=== PATIENT | female | born 1980 | race Caucasian/White ===

== ENCOUNTER 2017-02-08 17:57 | Emergency (ER) | payer MEDICAID ==
[2017-02-08] MEDS: LORAZEPAM 2 MG/ML VIAL IV ONE (18:13)
--- NOTE | 2017-02-08 18:18 | Emergency Department Record ---
History of Present Illness - General Chief complaint: Allergic Reaction Stated complaint: MIGRAINE/MEDICATION REACTION Time Seen by Provider: 02/08/17 18:03 Source: Patient Mode of Arrival: Ambulatory Limitations: No limitations - History of Present Illness Initial Comments: The patient is here due to having an atypical reaction to taking Sumatriptan a half hour ago. The patient was having a typical migraine COTO and decided to take an IM shot of the Sumatriptan. She has had Imitrex in the past but has not used this generic brand before. Shortly after receiving the dose she developed a flushed feeling, had difficulty breathing and felt SOB, felt that her face was numb and then became very anxious. She did not have any swelling, rash, itching or vomiting. When she presented to the ED she clearly was extremely anxious but did not exhibit any signs of an anaphylactic reaction. MD Complaint: Other Onset/Timin -: Minutes(s) Exposure: Medication Symptoms: Difficulty breathing, Difficulty swallowing Severity: Mild Previous Allergy History: None - Related Data Allergies Allergy/AdvReac Type Severity Reaction Status Date / Time cefaclor [From Ceclor] Allergy Severe PT UNSURE Unverified 07/25/16 10:11 OF REACTION Travel Screening - Travel/Exposure Within Last 30 Days Have you traveled within the last 30 days?: No Review of Systems Constitutional: Denies: Chills, Fever Eyes: Denies: Eye discharge ENT: Denies: Congestion Respiratory: Denies: Cough, Dyspnea Past Medical History - SOCIAL HISTORY Smoking Status: Never smoker Alcohol Use: Occasional Drug Use: None - RESPIRATORY Hx Respiratory Disorders: No - CARDIOVASCULAR Hx Cardio Disorders: Yes Hx Hypertension: Yes - NEURO Hx Neuro Disorders: Yes Hx Seizures: Yes - GI Hx GI Disorders: No - Hx Genitourinary Disorders: No - ENDOCRINE Hx Endocrine Disorders: No - MUSCULOSKELETAL Hx Arthritis: Yes Hx Fibromyalgia: Yes - PSYCH Hx Psych Problems: Yes Comment:: bipolar - HEMATOLOGY/ONCOLOGY Hx Hematology/Oncology Disorders: Yes Hx Cancer: Yes (bowel) Hx Chemotherapy: Yes Hx Radiation Therapy: Yes Family Medical History Any Significant Family History?: No Physical Exam - General General Appearance: Alert, Oriented x3, Mild distress (due to anxiety. The patient is able to speak in full sentences with a normal voice.) - Head Head exam: Atraumatic, Normocephalic, Normal inspection - Eye Eye exam: Normal appearance, PERRL - ENT Throat exam: Normal inspection. negative: Tonsillar erythema, Tonsillomegaly, Tonsillar exudate, R peritonsillar mass, L peritonsillar mass - Neck Neck exam: Normal inspection, Full ROM. negative: Tenderness - Respiratory Respiratory exam: Normal lung sounds bilaterally. negative: Accessory muscle use, Chest wall tenderness, Decreased breath sounds, Respiratory distress, Rhonchi - Cardiovascular Cardiovascular Exam: Regular rate, Normal rhythm, Normal heart sounds - GI/Abdominal GI/Abdominal exam: Soft, Normal bowel sounds. negative: Tenderness - Extremities Extremities exam: Normal inspection, Full ROM, Normal capillary refill. negative: Tenderness - Neurological Neurological exam: Alert, Normal gait. negative: Abnormal gait, Motor sensory deficit - Psychiatric Psychiatric exam: Anxious - Skin Skin exam: negative: Rash Course Vital Signs 02/08/17 18:01 Temperature 97.5 F L Pulse Rate 111 H Respiratory 20 Rate Blood Pressure 159/117 Pulse Ox 97 - Reevaluation(s) Reevaluation #1: The patient is doing very well at this time. She is MUCH more calm and her HR now is 90 and BP much improved. We will order her some medicine for a migraine COTO. 02/08/17 18:28 Reevaluation #2: The patient is doing better at this time. She is resting comfortably but still does have the Migraine COTO. She will be getting her pain medicines shortly. The patient's care will be turned over to Dr. Celaya at 19:00 due to shift change. 02/08/17 18:47 Medical Decision Making - Data Complexity MDM Data: EKG Ordered and/or Reviewed - Lab Data Result diagrams: 02/08/17 18:11 02/08/17 18:11 - EKG Data -: EKG Interpreted by Me EKG: No Acute Changes, Normal EKG Disposition Forms: Patient Portal Access Quality - Quality Measures Quality Measures: N/A - Blood Pressure Screening View Details: Yes Does Patient Have Any of the Following: No Blood Pressure Classification: Hypertensive Reading Systolic Measurement: 159 Diastolic Measurement: 117 Screening for High Blood Pressure: < Pre-Hypertensive BP, F/U Documented > [ G8950] Pre-Hypertensive Follow-up Interventions: Referral to alternative/primary care provider.
[2017-02-08 18:36] LABS: HEMATOCRIT 43.7 % (35.0-47.0); HEMOGLOBIN 15.7 gm/dl (11.6-16.0); MEAN CELL VOLUME 94.8 fl (81-97); MEAN CORPUSCULAR HEMOGLOBIN 34.1 pg (27-33); MEAN CORPUSCULAR HGB CONC 35.9 g/dl (32-36); MEAN PLATELET VOLUME 9.8 fl (7.4-10.4); PLATELET COUNT 304 K/uL (130-400); RED BLOOD COUNT 4.61 M/uL (3.80-5.40); RED CELL DISTRIBUTION WIDTH 11.4 % (11.5-14.5); WHITE BLOOD COUNT W/O DIFF 3.8 K/uL (4.2-12.2)
[2017-02-08 18:53] LABS: ALB/GLOB RATIO 1.6 (1.1-1.8); ALBUMIN 5.1 g/dL (4.0-5.0); ALKALINE PHOSPHATASE 85 U/L (35-104); ALT/SGPT 142 U/L (<33); AST/SGOT 273 U/L (10.0-35.0); BLOOD UREA NITROGEN 12 mg/dL (6-20); CREATININE 0.5 mg/dL (0.5-0.9); EST GLOMERULAR FILTRATION RATE > 60 mL/min; GLUCOSE,RANDOM 70 mg/dL (74-109); TOTAL PROTEIN 8.3 g/dL (6.6-8.7)
[2017-02-08] MEDS: 0.9 % SODIUM CHLORIDE 1,000 ML BAG IV ONE (18:54)
[2017-02-08] MEDS: METOCLOPRAMIDE HCL 10 MG/2 ML VIAL IVP ONE (18:55)
[2017-02-08] MEDS: KETOROLAC 30 MG/ML VIAL IVP ONE (18:55)
[2017-02-08] MEDS: DIPHENHYDRAMINE HCL IV 50 MG/ML VIAL IVP ONE (18:55)
--- NOTE | 2017-02-08 19:37 | Emergency Department Record ---
History of Present Illness - General Chief complaint: Allergic Reaction Stated complaint: MIGRAINE/MEDICATION REACTION Time Seen by Provider: 02/08/17 18:03 Source: Patient Mode of Arrival: Ambulatory Limitations: No limitations - History of Present Illness Onset/Timin -: Minutes(s) Exposure: Medication Symptoms: Difficulty breathing, Difficulty swallowing Severity: Mild Previous Allergy History: None - Related Data Allergies Allergy/AdvReac Type Severity Reaction Status Date / Time cefaclor [From [facility]] Allergy Severe PT UNSURE Unverified 07/25/16 10:11 OF REACTION Travel Screening - Travel/Exposure Within Last 30 Days Have you traveled within the last 30 days?: No Review of Systems Constitutional: Denies: Chills, Fever Eyes: Denies: Eye discharge ENT: Denies: Congestion Respiratory: Denies: Cough, Dyspnea Past Medical History - SOCIAL HISTORY Smoking Status: Never smoker Alcohol Use: Occasional Drug Use: None - RESPIRATORY Hx Respiratory Disorders: No - CARDIOVASCULAR Hx Cardio Disorders: Yes Hx Hypertension: Yes - NEURO Hx Neuro Disorders: Yes Hx Seizures: Yes - GI Hx GI Disorders: No - Hx Genitourinary Disorders: No - ENDOCRINE Hx Endocrine Disorders: No - MUSCULOSKELETAL Hx Arthritis: Yes Hx Fibromyalgia: Yes - PSYCH Hx Psych Problems: Yes Comment:: bipolar - HEMATOLOGY/ONCOLOGY Hx Hematology/Oncology Disorders: Yes Hx Cancer: Yes (bowel) Hx Chemotherapy: Yes Hx Radiation Therapy: Yes Family Medical History Any Significant Family History?: No Physical Exam - General Limitations: No limitations Course Vital Signs 02/08/17 02/08/17 18:01 18:28 Temperature 97.5 F L Pulse Rate 111 H Pulse Rate [ 92 H Pulse Ox Probe] Respiratory 20 18 Rate Blood Pressure 159/117 Blood Pressure 151/105 [Left Arm] Pulse Ox 97 96 - Reevaluation(s) Reevaluation #1: 02/08/17 19:34 pt feels better Medical Decision Making - Lab Data Result diagrams: 02/08/17 18:11 02/08/17 18:11 Lab Results 02/08/17 02/08/17 Range/Units 18:11 18:11 WBC 3.8 L (4.2-12.2) K/uL RBC 4.61 (3.80-5.40) M/uL Hgb 15.7 (11.6-16.0) gm/dl Hct 43.7 (35.0-47.0) % MCV 94.8 (81-97) fl MCH 34.1 H (27-33) pg MCHC 35.9 (32-36) g/dl RDW 11.4 L (11.5-14.5) % Plt Count 304 (130-400) K/uL MPV 9.8 (7.4-10.4) fl Neutrophils % 22.0 L (47-80) % Band Neutrophils % 2.0 (0-5) % Eosinophils % Not Reportable Basophils % Not Reportable Lymphocytes 63.0 H (16-45) % Monocytes 13.0 H (0-9) % Basophils 0.0 (0-6) % Eosinophil Count 0.0 (0-6) % Sodium 142 (136-145) mmol/L Potassium 3.6 (3.4-4.5) mmol/L Chloride 97 L (98-107) mmol/L Carbon Dioxide 23.0 (22-29) mmol/L Anion Gap 22.0 H (7-16) BUN 12 (6-20) mg/dL Creatinine 0.5 (0.5-0.9) mg/dL Estimated GFR > 60 mL/min Random Glucose 70 L (74-109) mg/dL Calcium 9.6 (8.6-10.0) mg/dL Total Bilirubin Not Reportable AST 273 H (10.0-35.0) U/L ALT 142 H (<33) U/L Alkaline Phosphatase 85 (35-104) U/L Total Protein 8.3 (6.6-8.7) g/dL Albumin 5.1 H (4.0-5.0) g/dL Globulin 3.2 (1.4-4.8) gm/dL Albumin/Globulin Ratio 1.6 (1.1-1.8) Disposition Disposition: Discharge Clinical Impression: Anxiety Migraine Qualifiers: Migraine type: unspecified Status migrainosus presence: without status migrainosus Intractability: not intractable Qualified Code(s): G43.909 - Migraine, unspecified, not intractable, without status migrainosus Disposition: Home, Self-Care Condition: (1) Good Instructions: Migraine Headache (ED) Additional Instructions: follow up with family doctor. return sooner if worse Forms: Patient Portal Access Quality - Quality Measures Quality Measures: N/A - Blood Pressure Screening Does Patient Have Any of the Following: No Blood Pressure Classification: Hypertensive Reading Systolic Measurement: 159 Diastolic Measurement: 117 Screening for High Blood Pressure: < First Hypertensive BP, F/U Documented > [ G8950] First Hypertensive Follow-up Interventions: Follow-up with rescreen GT 1 day and LT 4 weeks.
== END 2017-02-08 19:58 | disposition home or self-care (01) ==
LOC: ER 17:57
DX: G43.909 Migraine, unspecified, not intractable, without status migrainosus (principal); F41.9 Anxiety disorder, unspecified; R06.02 Shortness of breath; R13.10 Dysphagia, unspecified
CPT/HCPCS: 99284 ×2; 96374; 96375; 80053; 85027; 93005; 93010; J1885; J2060; J1200; J2765; J7030

== ENCOUNTER 2017-12-21 11:32 | Day surgery (SDC) | payer MEDICAID ==
[2017-12-21] MEDS ORDERED: PROPOFOL 10 MG/ML VIAL IV ONE (11:33)
[2017-12-21] MEDS ORDERED: MIDAZOLAM HCL 2MG/2ML VIAL IV ONE (11:33)
[2017-12-21] MEDS ORDERED: LIDOCAINE 2% MDV (20MG/ML) 20ML VIAL IV ONE (11:33)
--- NOTE | 2017-12-24 12:50 | Operative Note ---
DATE OF SURGERY: 12/21/2017 SURGEON: Ameya Spencer MD OPERATION: COLONOSCOPY. INDICATIONS: This is a 37-year-old female with history of colon polyps who presented for surveillance colonoscopy. POSTOPERATIVE DIAGNOSIS: Normal colon and terminal ileal mucosa. ANESTHESIA: Sedation is per Anesthesia. Pulse oximetry was monitored throughout the procedure to maintain O2 saturation of 90% or greater. Supplemental oxygen was administered via nasal cannula. Cardiac and vital signs were monitored throughout the duration of the procedure, and they were stable. The procedure of colonoscopy and risks and alternatives of the procedure, including the risk of bleeding and perforation, among others, were explained to the patient who voiced understanding and agreed to have the procedure done. Physical examination was performed, and the patient was found stable for sedation. PROCEDURE: The patient was placed in the left lateral position. Sedation was initiated. A digital rectal exam was performed and showed some mild external hemorrhoids with no palpable rectal masses. An Olympus PCF-180AL colonoscope was then inserted into the rectum under direct visualization. It was advanced to the cecum without difficulty. The ileocecal valve and appendiceal orifice were identified and photographed. The colonic mucosa was carefully examined upon introduction of the colonoscope. There were no lesions noted. The colonoscope was then withdrawn while carefully examining the colonic mucosal surfaces. No lesions were noted. In the rectum, retroflexion was performed and grade 1 internal hemorrhoids were noted. The colonoscope was then withdrawn and the procedure was terminated. The patient tolerated the procedure well without any immediate complications. The patient remained with stable vital signs and was transferred to the recovery room. RECOMMENDATIONS: 1. The patient should be on a high-fiber diet. 2. The patient is to have a repeat colonoscopy for surveillance in about 5 years. Thank you for allowing me to participate in the care of your patient. CC: Destinee JACKSON
== END 2017-12-21 13:40 | disposition home or self-care (01) ==
LOC: HOP 11:32
PROVIDERS: ATTEND Internal Medicine Gastroenterology
DX: Z12.11 Encounter for screening for malignant neoplasm of colon (principal); Z86.010 Personal history of colon polyps; I10 Essential (primary) hypertension; L40.50 Arthropathic psoriasis, unspecified; F43.10 Post-traumatic stress disorder, unspecified
CPT/HCPCS: 00812; 81025; G0121

== ENCOUNTER 2018-07-04 11:21 | Emergency (ER) | payer MEDICAID ==
[2018-07-04] MEDS ORDERED: ONDANSETRON HCL IV 4 MG/2 ML VIAL IV ONE (11:42)
[2018-07-04] MEDS ORDERED: 0.9 % SODIUM CHLORIDE 1,000 ML BAG IV ONE (11:42)
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
[2018-07-04 12:12] LABS: HEMATOCRIT 40.3 % (35.0-47.0); HEMOGLOBIN 14.2 gm/dl (11.6-16.0); MEAN CELL VOLUME 105.8 fl (81-97); MEAN CORPUSCULAR HEMOGLOBIN 37.3 pg (27-33); MEAN CORPUSCULAR HGB CONC 35.2 g/dl (32-36); MEAN PLATELET VOLUME 10.5 fl (7.4-10.4); PLATELET COUNT 223 K/uL (130-400); RED BLOOD COUNT 3.81 M/uL (3.80-5.40); RED CELL DISTRIBUTION WIDTH 12.8 % (11.5-14.5); WHITE BLOOD COUNT W/O DIFF 2.5 K/uL (4.2-12.2)
[2018-07-04 12:26] LABS: BLOOD UREA NITROGEN 6 mg/dL (6-20); CREATININE 0.6 mg/dL (0.5-0.9); EST GLOMERULAR FILTRATION RATE > 60 mL/min; PLATELET ESTIMATE NORMAL (NORMAL); TOTAL PROTEIN 7.4 g/dL (6.6-8.7)
[2018-07-04 12:28] LABS: GLUCOSE,RANDOM 89 mg/dL (74-109)
[2018-07-04 12:31] LABS: ALB/GLOB RATIO 1.3 (1.1-1.8); ALBUMIN 4.2 g/dL (4.0-5.0); ALKALINE PHOSPHATASE 112 U/L (35-104); ALT/SGPT 53 U/L (<33); AST/SGOT 162 U/L (10.0-35.0)
[2018-07-04] MEDS ORDERED: ACETAMINOPHEN 325 MG TAB PO ONE (12:40)
[2018-07-04 13:10] LABS: URINE APPEARANCE CLEAR; URINE BILIRUBIN NEGATIVE (NEGATIVE); URINE BLOOD NEGATIVE (NEGATIVE); URINE COLOR YELLOW; URINE GLUCOSE (UA) NEGATIVE (NEGATIVE); URINE KETONE NEGATIVE (NEGATIVE); URINE LEUKOCYTE ESTERASE NEGATIVE (NEGATIVE); URINE NITRITE NEGATIVE (NEGATIVE)
[2018-07-04 13:11] LABS: HCG,QUALITATIVE URINE NEGATIVE (NEGATIVE)
[2018-07-04] MEDS ORDERED: POTASSIUM CHLORIDE 20 MEQ TABLET PO ONE (13:23)
--- NOTE | 2018-07-06 16:14 | RADIOLOGY REPORT ---
DATE: 07/04/2018 at 1210 hours. EXAM: CHEST, TWO VIEWS. HISTORY: Cough, congestion, and nausea for one month. TECHNIQUE: Upright PA and lateral views of the chest. COMPARISON: Radiographic examination of the thoracic spine dated 09/24/2013. FINDINGS: The heart is normal in size, and the pulmonary vasculature is nondilated. Minimal biapical pleural and parenchymal scarring is questioned. The lungs and pleural spaces are otherwise clear. The osseous structures are intact. IMPRESSION: NO EVIDENCE OF ACUTE CARDIOPULMONARY DISEASE. JOB NUMBER: [id number] [facility]
== END 2018-07-04 13:44 | disposition home or self-care (01) ==
LOC: ER 11:21
DX: J20.9 Acute bronchitis, unspecified (principal); E87.6 Hypokalemia; R94.5 Abnormal results of liver function studies; I10 Essential (primary) hypertension
CPT/HCPCS: 99284 ×2; 96374; 80053; 81003; 81025; 85027; 71046; J2405; J7030

== ENCOUNTER 2018-07-10 10:48 | Emergency (ER) | payer MEDICAID ==
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
[2018-07-10] MEDS ORDERED: PROMETHAZINE HCL 25 MG in 0.9 % SODIUM CHLORIDE 100ML 100 ML IVPB ONE (11:19)
[2018-07-10] MEDS ORDERED: 0.9 % SODIUM CHLORIDE 1,000 ML BAG IV ONE (11:22)
[2018-07-10 11:54] LABS: BASO % 0.2 % (0-6); EOS % 0.5 % (0-6); GRAN % 63.8 % (47-80); HEMATOCRIT 41.3 % (35.0-47.0); LYMPH % 27.3 % (16-45); MEAN CELL VOLUME 103.8 fl (81-97); MEAN CORPUSCULAR HEMOGLOBIN 37.7 pg (27-33); MEAN CORPUSCULAR HGB CONC 36.3 g/dl (32-36); MEAN PLATELET VOLUME 10.9 fl (7.4-10.4); MONO % 8.2 % (0-9); PLATELET COUNT 277 K/uL (130-400); RED BLOOD COUNT 3.98 M/uL (3.80-5.40); RED CELL DISTRIBUTION WIDTH 12.2 % (11.5-14.5); WHITE BLOOD COUNT W/O DIFF 4.2 K/uL (4.2-12.2)
[2018-07-10 11:58] LABS: URINE APPEARANCE SL CLOUDY; URINE BILIRUBIN SMALL (NEGATIVE); URINE BLOOD MODERATE (NEGATIVE); URINE COLOR YELLOW; URINE GLUCOSE (UA) NEGATIVE (NEGATIVE); URINE KETONE TRACE (NEGATIVE); URINE LEUKOCYTE ESTERASE LARGE (NEGATIVE); URINE NITRITE NEGATIVE (NEGATIVE); URINE UROBILINOGEN 0.2 E.U./dL (0.20 - 1.00)
[2018-07-10 12:06] LABS: URINE BACTERIA 2+
[2018-07-10 12:08] LABS: BLOOD UREA NITROGEN 5 mg/dL (6-20); CREATININE 0.6 mg/dL (0.5-0.9); EST GLOMERULAR FILTRATION RATE > 60 mL/min
[2018-07-10 12:09] LABS: LIPASE 37 U/L (13-60); TOTAL PROTEIN 8.2 g/dL (6.6-8.7)
[2018-07-10 12:11] LABS: GLUCOSE,RANDOM 112 mg/dL (74-109)
[2018-07-10 12:13] LABS: ALBUMIN 4.7 g/dL (4.0-5.0); ALKALINE PHOSPHATASE 143 U/L (35-104); ALT/SGPT 84 U/L (<33); AST/SGOT 374 U/L (10.0-35.0); BILIRUBIN,DIRECT 0.5 mg/dL (0-0.3)
[2018-07-10] MEDS ORDERED: 0.9 % SODIUM CHLORIDE 1000ML 1,000 ML IV SCH (12:30)
[2018-07-10] MEDS ORDERED: POTASSIUM CHLORIDE 20 MEQ TABLET PO ONE ×2 (12:53→14:27)
[2018-07-10] MEDS ORDERED: ONDANSETRON HCL IV 4 MG/2 ML VIAL IVP ONE (13:15)
== END 2018-07-10 14:47 | disposition home or self-care (01) ==
LOC: ER 10:48
DX: R11.2 Nausea with vomiting, unspecified (principal); R19.7 Diarrhea, unspecified; R51 Headache; E87.6 Hypokalemia; F41.9 Anxiety disorder, unspecified; I10 Essential (primary) hypertension
CPT/HCPCS: 80048; 80076; 80320; 81001; 83690; 85025; 96361; 96365; 96375; 99284; J2405; J2550; J7030

== ENCOUNTER 2018-09-10 08:26 | Emergency (ER) | payer MEDICAID ==
[2018-09-10] MEDS ORDERED: ONDANSETRON HCL IV 4 MG/2 ML VIAL IV ONE (08:53)
[2018-09-10] MEDS ORDERED: 0.9 % SODIUM CHLORIDE 1,000 ML BAG IV ONE (08:53)
[2018-09-10 09:07] LABS: HEMATOCRIT 36.5 % (35.0-47.0); HEMOGLOBIN 12.3 gm/dl (11.6-16.0); MEAN CELL VOLUME 107.4 fl (81-97); MEAN CORPUSCULAR HGB CONC 33.7 g/dl (32-36); MEAN PLATELET VOLUME 11.4 fl (7.4-10.4); PLATELET COUNT 180 K/uL (130-400); RED CELL DISTRIBUTION WIDTH 15.3 % (11.5-14.5); WHITE BLOOD COUNT W/O DIFF 8.3 K/uL (4.2-12.2)
[2018-09-10 09:09] LABS: MEAN CORPUSCULAR HEMOGLOBIN 36.1 pg (27-33)
[2018-09-10 09:10] LABS: HCG,QUALITATIVE URINE NEGATIVE (NEGATIVE)
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
[2018-09-10 09:18] LABS: BLOOD UREA NITROGEN 3 mg/dL (6-20); CREATININE 0.5 mg/dL (0.5-0.9); EST GLOMERULAR FILTRATION RATE > 60 mL/min; LIPASE 31 U/L (13-60); TOTAL PROTEIN 7.1 g/dL (6.6-8.7); URINE BILIRUBIN LARGE (NEGATIVE); URINE BLOOD TRACE-I (NEGATIVE); URINE GLUCOSE (UA) NEGATIVE (NEGATIVE); URINE KETONE 15 mg/dL (NEGATIVE); URINE LEUKOCYTE ESTERASE TRACE (NEGATIVE); URINE NITRITE POSITIVE (NEGATIVE)
[2018-09-10 09:19] LABS: URINE APPEARANCE CLOUDY
[2018-09-10 09:20] LABS: GLUCOSE,RANDOM 113 mg/dL (74-109)
[2018-09-10 09:22] LABS: URINE RBC 0 - 2 (NONE SEEN); URINE WBC 0 - 2 (0-2/hpf)
[2018-09-10 09:23] LABS: ALB/GLOB RATIO 0.7 (1.1-1.8); ALBUMIN 2.9 g/dL (4.0-5.0); ALKALINE PHOSPHATASE 319 U/L (35-104); ALT/SGPT 49 U/L (<33); AST/SGOT 282 U/L (10.0-35.0); URINE BACTERIA 2+; URINE MUCUS MODERATE
[2018-09-10 09:24] LABS: URINE COLOR ORANGE
[2018-09-10] MEDS ORDERED: POTASSIUM CHLORIDE 20 MEQ TABLET PO ONE (09:33)
[2018-09-10 13:26] LABS: INR 1.7; PROTHROMBIN TIME (PATIENT) 16.7 SECONDS (9.5-12.1)
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
[2018-09-10 18:54] LABS: HEP A AB IGM Nonreactive (Nonreactive); HEPATITIS B CORE ANTIBODY,IGM Nonreactive (Nonreactive); HEPATITIS B SURFACE ANTIGEN Nonreactive (Nonreactive); HEPATITIS C VIRUS ANTIBODY Nonreactive (Nonreactive)
--- NOTE | 2018-09-12 14:53 | CT SCAN REPORT ---
EXAM: CT OF THE ABDOMEN AND PELVIS WITHOUT CONTRAST HISTORY: ABDOMINAL PAIN, VOMITING. ELEVATED LIVER ENZYMES. TECHNIQUE: CT of the abdomen and pelvis without contrast was obtained. Comparison: None. FINDINGS: A noncalcified 3 mm nodular is partially visualized in the right lower lobe. The lung bases are otherwise clear. The liver is diffusely enlarged, measuring up to 25.7 cm in length. Diffuse, slightly heterogeneous hypoattenuation of the hepatic parenchyma. The gallbladder monroe appear diffusely thickened. No visible gallstones. The biliary tree is not well seen. The spleen is top normal in size. Unremarkable noncontrast appearance of the pancreas and adrenal glands. No intrarenal calculi. No hydronephrosis. Small volume of ascites, predominantly layering within the pelvis. No pneumoperitoneum. Mild sigmoid colon diverticulosis without evidence of acute diverticulitis. The appendix is not clearly seen, possibly obscured by multiple small bowel loops in the right lower quadrant. No disproportionate inflammatory changes are appreciated in the right lower abdominal quadrant. The stomach and small bowel are nondilated. Intrauterine device within the uterus. The urinary bladder is nondistended, poorly visualized. The abdominal aorta appears nondilated. No acute osseous findings. IMPRESSION: 1. HEPATOMEGALY WITH DIFFUSE PARENCHYMAL HYPOATTENUATION, WHICH MAY REPRESENT STEATOSIS AND/OR HEPATITIS. 2. DIFFUSE GALLBLADDER WALL THICKENING WITHOUT VISIBLE GALLSTONES. APPEARANCE IS NONSPECIFIC AND COULD BE SEEN IN THE SETTING OF ADJACENT HEPATIC INFLAMMATION. FOLLOW-UP WITH ULTRASOUND MAY HELP TO FURTHER CHARACTERIZE. 3. SMALL VOLUME OF ASCITES. 4. SMALL NONCALCIFIED 3 MM RIGHT LOWER LOBE SUBPLEURAL NODULES NOTED. JOB NUMBER: [id number] [facility]
--- NOTE | 2018-09-12 14:55 | RADIOLOGY REPORT ---
EXAM: CHEST, TWO VIEWS HISTORY: CONGESTION. TECHNIQUE: Two views of the chest were obtained. Comparison: Chest radiograph 07/04/18. FINDINGS: The cardiac silhouette is within normal size limits. No focal pulmonary consolidation. No pleural effusion or pneumothorax. IMPRESSION: NO ACUTE LUNG FINDINGS. JOB NUMBER: [id number] [facility]
--- NOTE | 2018-09-12 15:02 | ULTRASOUND REPORT ---
EXAM: COMPLETE ABDOMEN ULTRASOUND HISTORY: ABDOMINAL PAIN AND BLOATING. TECHNIQUE: Complete abdomen ultrasound was obtained. Comparison: CT of the abdomen and pelvis 09/10/18. FINDINGS: The visualized portion of the pancreatic head appears unremarkable. The remainder of the pancreas is obscured by shadowing bowel gas. The visualized abdominal aorta appears nondilated. The liver appears enlarged and diffusely echogenic. Perihepatic ascites is noted. The gallbladder wall appears circumferentially thickened measuring up to 7 mm. No gallstones are seen. The common bile duct measures up to 5 mm in transverse diameter, within normal limits. The spleen is likely top normal in size, difficult to differentiate sonographically from adjacent liver as seen on same day CT. The right renal length is 12.2 cm. The left renal length is 12.2 cm. No hydronephrosis. No shadowing calculus or focal mass demonstrated. The inferior vena cava is not well seen. IMPRESSION: 1. DIFFUSE GALLBLADDER WALL THICKENING WITHOUT EVIDENCE OF CHOLELITHIASIS. THE APPEARANCE IS NONSPECIFIC, WITH DIFFERENTIAL CONSIDERATIONS INCLUDING FLUID OVERLOAD STATE, ADJACENT HEPATOCELLULAR DISEASE, OR HYPOPROTEINEMIA. 2. THE COMMON BILE DUCT APPEARS NONDILATED. 3. ENLARGED ECHOGENIC LIVER, SUGGESTING STEATOSIS. 4. SMALL VOLUME OF PERIHEPATIC ASCITES. JOB NUMBER: [id number] [facility]
== END 2018-09-10 14:17 | disposition short-term general hospital (02) ==
LOC: ER 08:26
DX: K70.11 Alcoholic hepatitis with ascites (principal); R10.84 Generalized abdominal pain; R11.2 Nausea with vomiting, unspecified; I10 Essential (primary) hypertension
CPT/HCPCS: 71046; 74176; 76700; 80053; 81001; 81025; 82248; 83605; 83690; 85027; 85610; 96374; 99285; J2405; J7030

== ENCOUNTER 2018-09-20 11:55 | Emergency (ER) | payer MEDICAID ==
[2018-09-20] MEDS ORDERED: 0.9 % SODIUM CHLORIDE 1,000 ML BAG IV ONE (12:00)
[2018-09-20] MEDS ORDERED: MORPHINE SULFATE 10 MG/ML VIAL IVP ONE ×3 (12:07→14:49)
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
[2018-09-20 12:20] LABS: ABSOLUTE NEUTROPHIL COUNT 10.36; BASO % 0.2 % (0-6); EOS % 0.5 % (0-6); GRAN % 78.2 % (47-80); HEMATOCRIT 36.3 % (35.0-47.0); HEMOGLOBIN 12.4 gm/dl (11.6-16.0); LYMPH % 11.4 % (16-45); MEAN CELL VOLUME 108.7 fl (81-97); MEAN CORPUSCULAR HEMOGLOBIN 37.1 pg (27-33); MEAN CORPUSCULAR HGB CONC 34.2 g/dl (32-36); MEAN PLATELET VOLUME 11.1 fl (7.4-10.4); MONO % 9.7 % (0-9); PLATELET COUNT 282 K/uL (130-400); RED BLOOD COUNT 3.34 M/uL (3.80-5.40); RED CELL DISTRIBUTION WIDTH 17.8 % (11.5-14.5); WHITE BLOOD COUNT W/O DIFF 13.2 K/uL (4.2-12.2)
[2018-09-20 12:27] LABS: BLOOD UREA NITROGEN 8 mg/dL (6-20); CREATININE 0.5 mg/dL (0.5-0.9); EST GLOMERULAR FILTRATION RATE > 60 mL/min; TOTAL PROTEIN 6.7 g/dL (6.6-8.7)
[2018-09-20 12:28] LABS: LIPASE 30 U/L (13-60)
[2018-09-20 12:29] LABS: GLUCOSE,RANDOM 115 mg/dL (74-109); INR 1.7; PROTHROMBIN TIME (PATIENT) 16.6 SECONDS (9.5-12.1)
[2018-09-20 12:32] LABS: ALB/GLOB RATIO 0.6 (1.1-1.8); ALBUMIN 2.4 g/dL (4.0-5.0); ALKALINE PHOSPHATASE 250 U/L (35-104); ALT/SGPT 52 U/L (<33); AST/SGOT 221 U/L (10.0-35.0)
[2018-09-20] MEDS ORDERED: 0.9 % SODIUM CHLORIDE 1000ML 1,000 ML IV ONE (12:59)
--- NOTE | 2018-09-23 19:24 | ULTRASOUND REPORT ---
EXAM: ULTRASOUND ABDOMEN, LIMITED HISTORY: LOWER ABDOMINAL PAIN. SWELLING. ASCITES. TECHNIQUE: Routine ultrasound examination of the right upper abdomen is performed. COMPARISON: Ultrasound of the abdomen complete dated 09/10/2018. CT abdomen and pelvis without contrast dated 09/10/2018. FINDINGS: The pancreatic tail is obscured by overlying bowel gas. The remainder of the pancreas is visualized and normal in appearance. The liver is again noted to be diffusely echogenic and coarsened in echotexture consistent with diffuse hepatic steatosis. No definite hepatic mass. The margins of the right liver lobe appear somewhat micronodular. This may relate to artifact though this appearance can also be seen with cirrhosis. No intrahepatic biliary ductal dilatation is seen. The common hepatic duct is mildly prominent measuring 7.8 mm. Correlation with serum bilirubin and alkaline phosphatase levels is recommended. On the prior examination, it measured 5 mm. No cholelithiasis. Moderate distention of the gallbladder again demonstrated with uniform gallbladder wall thickening. A negative sonographic Mann sign is reported. There is ascites noted about the liver appearing more pronounced than on the prior examination. Screening evaluation of the right kidney does not demonstrate hydronephrosis nor mass. It measures 10.8 cm in length. IMPRESSION: 1. THE LIVER REMAINS ENLARGED AND DIFFUSELY ECHOGENIC WITH COARSENED HEPATIC ECHOTEXTURE CONSISTENT WITH STEATOSIS. THIS CAN ALSO BE SEEN WITH HEPATITIS AND CIRRHOSIS. THE MARGINS OF THE INFERIOR RIGHT LIVER LOBE APPEAR SOMEWHAT MICRONODULAR ON A COUPLE OF IMAGES. THIS MAY JUST RELATE TO ARTIFACT. CIRRHOSIS IS LESS LIKELY. 2. MILDLY PROMINENT COMMON HEPATIC DUCT MEASURING 7.8 MM WITHOUT INTRAHEPATIC BILIARY DUCTAL DILATATION. CORRELATION WITH SERUM BILIRUBIN AND ALKALINE PHOSPHATASE LEVELS RECOMMENDED. 3. MODERATE DISTENTION OF THE GALLBLADDER REDEMONSTRATED ASSOCIATED WITH UNIFORM GALLBLADDER WALL THICKENING. WHILE THIS THICKENING MAY RELATE TO A HYPOPROTEINEMIC STATE AND THE PRESENCE OF ASCITES, CHRONIC CHOLECYSTITIS CANNOT BE EXCLUDED. 4. ASCITES IN THE RIGHT UPPER QUADRANT APPEARING SLIGHTLY MORE PRONOUNCED THAN ON THE 09/10/2018 EXAMINATION. [facility]: [id number] [facility]
== END 2018-09-20 15:49 | disposition short-term general hospital (02) ==
LOC: ER 11:55
DX: R18.8 Other ascites (principal); K76.0 Fatty (change of) liver, not elsewhere classified; R10.84 Generalized abdominal pain; I10 Essential (primary) hypertension
CPT/HCPCS: 99285 ×2; 96376; 96374; 83735; 83690; 85025; 85730; 85610; 80053; 84703; 76705; G0480; J2270; 80320; J7030

== ENCOUNTER 2018-09-29 08:27 | Emergency (ER) | payer MEDICAID ==
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
[2018-09-29 10:47] LABS: ABSOLUTE NEUTROPHIL COUNT 11.99; HEMATOCRIT 35.3 % (35.0-47.0); HEMOGLOBIN 11.6 gm/dl (11.6-16.0); MEAN CELL VOLUME 113.5 fl (81-97); MEAN CORPUSCULAR HGB CONC 32.9 g/dl (32-36); MEAN PLATELET VOLUME 11.9 fl (7.4-10.4); PLATELET COUNT 186 K/uL (130-400); RED BLOOD COUNT 3.11 M/uL (3.80-5.40); RED CELL DISTRIBUTION WIDTH 16.5 % (11.5-14.5); WHITE BLOOD COUNT W/O DIFF 14.9 K/uL (4.2-12.2)
[2018-09-29 10:49] LABS: MEAN CORPUSCULAR HEMOGLOBIN 37.2 pg (27-33)
[2018-09-29 10:54] LABS: ANISOCYTOSIS 1+; PLATELET ESTIMATE NORMAL (NORMAL)
[2018-09-29 10:59] LABS: INR 1.6; PARTIAL THROMBOPLASTIN TIME 37.8 SECONDS (24.5-39.1); PROTHROMBIN TIME (PATIENT) 16.1 SECONDS (9.5-12.1)
[2018-09-29 11:01] LABS: BLOOD UREA NITROGEN 9 mg/dL (6-20); CREATININE 0.4 mg/dL (0.5-0.9); EST GLOMERULAR FILTRATION RATE > 60 mL/min
[2018-09-29 11:02] LABS: LIPASE 23 U/L (13-60); TOTAL PROTEIN 5.7 g/dL (6.6-8.7)
[2018-09-29 11:04] LABS: GLUCOSE,RANDOM 117 mg/dL (74-109)
[2018-09-29 11:06] LABS: ALB/GLOB RATIO 0.5 (1.1-1.8); ALBUMIN 1.9 g/dL (4.0-5.0); ALT/SGPT 54 U/L (<33); AST/SGOT 260 U/L (10.0-35.0)
[2018-09-29 11:07] LABS: ALKALINE PHOSPHATASE 196 U/L (35-104)
[2018-09-29 14:20] LABS: URINE APPEARANCE CLOUDY; URINE BILIRUBIN LARGE (NEGATIVE); URINE BLOOD NEGATIVE (NEGATIVE); URINE COLOR BROWN; URINE KETONE TRACE (NEGATIVE); URINE LEUKOCYTE ESTERASE NEGATIVE (NEGATIVE); URINE NITRITE NEGATIVE (NEGATIVE); URINE PROTEIN TRACE (NEGATIVE)
[2018-09-29 14:25] LABS: URINE RBC NONE SEEN (NONE SEEN); URINE WBC NONE SEEN (0-2/hpf)
[2018-09-29 14:26] LABS: URINE AMORPHOUS SEDIMENT 2+; URINE HYALINE CAST FEW /lpf; URINE MUCUS HEAVY
--- NOTE | 2018-10-02 06:13 | CT SCAN REPORT ---
EXAM: CT SCAN ABDOMEN/PELVIS WO CONTRAST HISTORY: ABDOMINAL PAIN, HISTORY OF CHRONIC LIVER DISEASE. TECHNIQUE: Axial CT scan of the abdomen and pelvis obtained without oral or IV contrast at the referring physician's request. COMPARISON: CT abdomen and pelvis, 09/10/18. FINDINGS: No calcified gallstones are identified within the gallbladder. No intrarenal calculi identified on either side. No hydronephrosis or hydroureter is seen. As such, the ureters are extremely difficult to follow in their course throughout the retroperitoneum and pelvis in their nondilated state, particularly in this patient of thin body habitus with little adipose tissue to act as a natural contrast agent and with considerable ascites as well. Given these limitations, no definite ureteral calculus seen on either side and no bladder calculus evident. IUD within the uterus, also present previously. Compared to the prior study, there are new bilateral pleural effusions, right greater than left, with new bibasilar atelectasis or infiltrate, also right greater than left. Compared to the prior study, there is also considerable increase in ascites diffusely in the abdomen and pelvis. Evaluation of the bowel and viscera extremely limited without oral or IV contrast. There is probably diffuse fatty infiltration of the liver noted previously as well. No gross discrete hepatic mass identified. No definite splenic, adrenal, pancreatic, or renal mass identified. Appendix not clearly delineated. No free intraperitoneal air identified. IMPRESSION: 1. NEW BILATERAL PLEURAL EFFUSIONS, RIGHT GREATER THAN LEFT, AND NEW BIBASILAR ATELECTASIS OR INFILTRATE, ALSO RIGHT GREATER THAN LEFT, WHEN COMPARED TO THE PRIOR CT OF 09/10/18. 2. CONSIDERABLE PROGRESSION IN ASCITES DIFFUSELY IN THE ABDOMEN AND PELVIS. 3. DISTENDED GALLBLADDER WITH NO CALCIFIED GALLSTONES IDENTIFIED. 4. DIFFUSE FATTY INFILTRATION OF THE LIVER. 5. IUD IN THE UTERUS ALSO PRESENT PREVIOUSLY. 6. EXAM CONSIDERABLY LIMITED WITHOUT ORAL OR IV CONTRAST. NO DEFINITE INTRARENAL CALCULI OR HYDRONEPHROSIS EVIDENT. URETERS NOT WELL SEEN. JOB NUMBER: [id number] [facility]
== END 2018-09-29 14:54 | disposition short-term general hospital (02) ==
LOC: ER 08:27
DX: K72.00 Acute and subacute hepatic failure without coma (principal); R14.0 Abdominal distension (gaseous); R11.0 Nausea; R63.5 Abnormal weight gain
CPT/HCPCS: 74176; 80053; 81001; 82140; 83605; 83690; 85027; 85610; 85730; 99285

== ENCOUNTER 2019-01-21 14:21 | Emergency (ER) | payer MEDICAID ==
[2019-01-21] MEDS ORDERED: ONDANSETRON HCL IV 4 MG/2 ML VIAL IVP ONE ×2 (15:13→17:08)
[2019-01-21] MEDS ORDERED: MORPHINE SULFATE 5 MG/ML VIAL IVP ONE (15:13)
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
[2019-01-21 16:00] LABS: ABSOLUTE NEUTROPHIL COUNT 6.83; HEMATOCRIT 26.5 % (35.0-47.0); HEMOGLOBIN 8.6 gm/dl (11.6-16.0); MEAN CELL VOLUME 108.2 fl (81-97); MEAN CORPUSCULAR HEMOGLOBIN 35.1 pg (27-33); MEAN CORPUSCULAR HGB CONC 32.5 g/dl (32-36); PLATELET COUNT 196 K/uL (130-400); RED BLOOD COUNT 2.45 M/uL (3.80-5.40); RED CELL DISTRIBUTION WIDTH 14.6 % (11.5-14.5); WHITE BLOOD COUNT W/O DIFF 9.3 K/uL (4.2-12.2)
[2019-01-21 16:13] LABS: INR 1.6; PARTIAL THROMBOPLASTIN TIME 31.1 SECONDS (24.5-39.1); PROTHROMBIN TIME (PATIENT) 16.1 SECONDS (9.5-12.1)
[2019-01-21 16:16] LABS: BLOOD UREA NITROGEN 18 mg/dL (6-20); EST GLOMERULAR FILTRATION RATE > 60 mL/min
[2019-01-21 16:17] LABS: LIPASE 138 U/L (13-60); TOTAL PROTEIN 6.6 g/dL (6.6-8.7)
[2019-01-21 16:19] LABS: GLUCOSE,RANDOM 79 mg/dL (74-109)
[2019-01-21 16:21] LABS: ALT/SGPT 13 U/L (<33); AST/SGOT 33 U/L (10.0-35.0)
[2019-01-21 16:22] LABS: ALB/GLOB RATIO 0.6 (1.1-1.8); ALBUMIN 2.5 g/dL (4.0-5.0); ALKALINE PHOSPHATASE 108 U/L (35-104)
[2019-01-21 16:53] LABS: URINE APPEARANCE CLEAR; URINE BILIRUBIN MODERATE (NEGATIVE); URINE BLOOD NEGATIVE (NEGATIVE); URINE COLOR YELLOW; URINE GLUCOSE (UA) NEGATIVE (NEGATIVE); URINE KETONE NEGATIVE (NEGATIVE); URINE LEUKOCYTE ESTERASE TRACE (NEGATIVE); URINE NITRITE NEGATIVE (NEGATIVE); URINE PROTEIN NEGATIVE (NEGATIVE)
[2019-01-21] MEDS ORDERED: MORPHINE SULFATE (PACU ONLY) 4 MG/ML VIAL IVP ONE (17:07)
[2019-01-21 17:10] LABS: URINE EPITHELIAL CELLS 0 - 2 (FEW); URINE RBC 0 - 2 (NONE SEEN); URINE WBC 0 - 2 (0-2/hpf)
--- NOTE | 2019-01-22 20:47 | RADIOLOGY REPORT ---
EXAM: CHEST 2 VIEWS HISTORY: WEAKNESS SINCE DISCHARGE FROM HOSPITAL. LIVER FAILURE. TECHNIQUE: Upright PA and lateral views of the chest. COMPARISON: Two-view chest radiographic examination dated 09/10/2018. CT abdomen and pelvis without contrast dated 11/06/2018. FINDINGS: The heart is nonenlarged. No pulmonary venous hypertension is seen. Mild biapical pleural and parenchyma scarring is identified. There is increased opacity in the right hemithorax base with costophrenic angle blunting suspicious for a moderate-sized pleural effusion and underlying right basilar airspace disease. This airspace disease may relate to atelectasis, though infiltrate is not excluded. The left lung and pleural space appear clear. IMPRESSION: MODERATE-SIZED RIGHT BASILAR PLEURAL EFFUSION. THERE IS ASSOCIATED RIGHT BASILAR AIRSPACE DISEASE CONSISTENT WITH INFILTRATE OR ATELECTASIS. [facility]BER: [id number] [facility]
== END 2019-01-21 17:55 | disposition home or self-care (01) ==
LOC: ER 14:21
DX: K70.9 Alcoholic liver disease, unspecified (principal); R11.2 Nausea with vomiting, unspecified; R19.7 Diarrhea, unspecified; R53.1 Weakness; R06.02 Shortness of breath; I10 Essential (primary) hypertension
CPT/HCPCS: 71046; 80053; 80320; 81001; 83690; 83735; 84703; 85027; 85610; 85730; 96374; 96375; 96376; 99284; J2270; J2405